=== PATIENT | male | born 1980 | race African-American/Black ===

== ENCOUNTER → 2023-03-10 | Outpatient (CLI) | payer OTHER ==
[2023-03-11 05:07] LABS: HSV 1 TYPE SPECIFIC IGG 3.65 index (0.00-0.90)
== END | disposition home or self-care (01) ==
LOC: MSR 10:39
PROVIDERS: ATTEND Chiropractor
DX: B00.9 Herpesviral infection, unspecified (principal); R07.9 Chest pain, unspecified
CPT/HCPCS: 71046; 86695; 86696; 36415-L1; 36415-TC